=== PATIENT | male | born 1990 | race Caucasian/White ===

== ENCOUNTER 2020-04-06 21:38 | Emergency (ER) | payer BC ==
[2020-04-06 21:47] VITALS: BP 163/99; PULSE 95; TEMP 99.9; BMI 24.3
== END 2020-04-07 00:22 | disposition home or self-care (01) ==
LOC: JER 21:38
DX: J45.21 Mild intermittent asthma with (acute) exacerbation (principal)
CPT/HCPCS: 71046-TC-FY; 99284-25

== ENCOUNTER 2022-01-15 12:26 | Emergency (ER) | payer BC ==
[2022-01-15 12:41] VITALS: BP 142/89; PULSE 64; RESP 18; TEMP 98; BMI 25.8
[2022-01-15] MEDS ORDERED: MAG HYDROX/AL HYDROX/SIMETH 30 ML UNIT-DOSE CUP PO ONE (13:42)
[2022-01-15] MEDS ORDERED: FAMOTIDINE 20 MG/50 ML IVPB 20 MG/50 ML MG IVPB ONE ×2 (13:42→13:52)
[2022-01-15] MEDS ORDERED: ONDANSETRON 4 MG/2 ML VIAL IVPUSH ONE (13:43)
[2022-01-15] MEDS ORDERED: LACTATED RINGERS SOLUTION 1,000 ML/1,000 ML INFUS.BAG IV SCH (13:45)
[2022-01-15] MEDS ORDERED: ONDANSETRON 4 MG/2 ML VIAL ONE (13:52)
[2022-01-15] MEDS ORDERED: MAG HYDROX/AL HYDROX/SIMETH 30 ML UNIT-DOSE CUP ONE (13:52)
[2022-01-15 14:28] LABS: HEMOGLOBIN 16.4 GM/dL (11.7-16.9); MCH 28.1 pg (25.7-33.7); MCHC 33.6 g/dl (32.0-35.9); MEAN CELL VOLUME 83.7 fl (80-96); MEAN PLT VOLUME 9.5 fl (7.5-11.1); PLATELET COUNT 370 10^3/uL (134-434); RBC 5.85 M/mm3 (4.00-5.60); RDW 13.2 % (11.9-15.9); WHITE BLOOD COUNT 10.1 K/mm3 (4.0-10.0)
[2022-01-15 14:47] LABS: CALCIUM 10.2 mg/dL (8.5-10.1)
[2022-01-15 14:48] LABS: ALBUMIN 4.3 g/dl (3.4-5.0); BLOOD UREA NITROGEN 13.1 mg/dL (7-18)
[2022-01-15 14:51] LABS: CREATININE 0.9 mg/dL (0.55-1.3)
[2022-01-15 14:53] LABS: TOT PROT 8.4 g/dl (6.4-8.2)
[2022-01-15 14:59] LABS: BILIRUBIN,TOTAL 0.7 mg/dL (0.2-1)
== END 2022-01-15 15:17 | disposition home or self-care (01) ==
LOC: JER 12:26
PROC: 3E033GC Introduction of Other Therapeutic Substance into Peripheral Vein, Percutaneous Approach (ICD-10-PCS; principal; 2022-01-15)
PROC: 3E033GC Introduction of Other Therapeutic Substance into Peripheral Vein, Percutaneous Approach (ICD-10-PCS; 2022-01-15)
DX: R11.2 Nausea with vomiting, unspecified (principal); R10.84 Generalized abdominal pain
CPT/HCPCS: 0241U-QW; 36415; 80053; 83690; 85025; 93005; 93010; 99284-25